=== PATIENT | male | born 1995 | race Caucasian/White ===

== ENCOUNTER → 2021-10-16 | Outpatient (CLI) | payer SELFPAY ==
--- NOTE | 2021-10-16 15:14 | Diagnostic Imaging Report ---
EXAMINATION: Right hand radiograph, 3 views. COMPARISON: None. HISTORY: 26-year-old male, hit a wall. Fifth metacarpal pain. FINDINGS: There is a comminuted mildly displaced fracture of the fifth metacarpal involving the proximal metaphysis extending to the level of the proximal metadiaphysis without clearly identified intra-articular fracture extension. There is no identified subluxation or dislocation. There is no identified radiopaque foreign body. IMPRESSION: Comminuted mildly displaced fracture of the proximal metaphysis and proximal metadiaphysis of the fifth metacarpal without clearly identified intra-articular fracture extension or associated subluxation or dislocation. Dictated by: Dictated on workstation # [id number]
== END ==
LOC: ORTHO 13:45
PROVIDERS: ATTEND Orthopaedic Surgery
DX: S62.396A Other fracture of fifth metacarpal bone, right hand, initial encounter for closed fracture (principal); W22.01XA Walked into wall, initial encounter
CPT/HCPCS: 73130; G0463; 99202